=== PATIENT | male | born 1940 | race Caucasian/White ===

== ENCOUNTER 2018-07-26 05:32 | Day surgery (SDC) | payer OTHER, BC ==
[~2018-07-26] VITALS: Ht 175.3 cm; Wt 90.7 kg
--- NOTE | ~2018-07-26 | O ---
[facility] [place] [address] OPERATIVE REPORT Name: ANDRADE PETERS Madie Room #: 150-11 [facility]#: [id number] Admission: 07/26/18 ������������������ Attend Phys: Felipe Buckner MD Discharge: ������������������ Date of : 36 Report #: [id number] THIS REPORT FOR: //name// CC: Mi Buckner DATE OF SERVICE: 07/26/2018 [employer]ODU[employer] INSPECTOR: None. PREOPERATIVE DIAGNOSIS: Unilateral left lower lid entropion. POSTOPERATIVE DIAGNOSIS: Unilateral left lower lid entropion. OPERATION PERFORMED: Unilateral left lower lid entropion repair. ANESTHESIA: Local with IV sedation. COMPLICATIONS: None. INDICATIONS FOR PROCEDURE: This patient has unilateral lower lid entropion with chronic irritation and discharge. The current procedure is being undertaken in order to improve the patient's level of comfort and visual function. Informed consent was obtained to include but not limited to the loss of vision, bleeding, infection, scarring, failure to improve the problem and need for further surgery. DESCRIPTION OF OPERATION: The patient was taken to the operating room, where 2% Xylocaine with epinephrine mixed with equal parts of 0.75% Marcaine with Wydase was administered transcutaneously and transconjunctivally to the lower lid and lateral canthal area. The patient was then prepped and draped in the usual sterile fashion. A Marlen clamp was used to clamp the lateral canthus, following which a sharp canthotomy and cantholysis were performed. Hemostasis was achieved with a monopolar cautery, as it was throughout the case. A tarsal strip was prepared laterally, removing the lash-bearing portion of the redundant lid margin and the redundant tarsal plate. A transconjunctival dissection was then undertaken just inferior to the lower border of the tarsal plate. The lower lid retractors were disinserted from the inferior border of the tarsal plate. The lower lid retractors were then advanced and reattached to the anterior surface of the tarsal plate with mattress 5-0 chromic sutures passed transconjunctivally and secured in the infraciliary margin. The tarsal strip was then secured laterally with 2 interrupted 5-0 Prolene sutures. The subcutaneous structures and the skin were then closed with multiple interrupted [address] [address] OPERATIVE REPORT Name: ANDRADE PETERS Room #: 150-11 [facility]#: [id number] Admission: 07/26/18 ������������������ Attend Phys: Felipe Buckner MD Discharge: ������������������ Date of : 36 Report #: [id number] 6-0 plain gut sutures so the lateral canthal angle was sharply reformed. The wound was then cleaned and dressed with ophthalmic antibiotic ointment. The patient was then transported to the recovery area having tolerated the procedure well with no anesthetic or operative complications being noted. ��������������������������������������������� ���������������������������������������� By: ��������������������������������������������� [id number] Felipe Buckner MD /vidal
[~2018-07-26 05:32] MED LIST: ALBUTEROL2.5 MG/31 INH; ASPIRIN81 M2 PO; LANSOPRAZOLE30 MG PO; LASIX 20 MG TAB20 MG PO; LOSARTAN-HCTZ1 EAC3 PO; MULTIVITAMINS1 EAC7 PO; NITROGLYCERIN0.4 MG SUBLING; NORVASC10 MG PO; OMEGA 3 500 SO1 EACH PO; PRAVACHOL40 MG PO; PRILOSEC 20 MG20 MG PO; PROSCAR 5MG TABL5 MG PO; PROZAC20 MG PO; VENTOLIN HFA 1818 GM INH; VITAMIN D32000 UNI2 PO
[2018-07-26 07:46] VITALS: BP 111/93
== END 2018-07-26 09:52 | disposition home or self-care (01) ==
LOC: TBA 05:32 → OR 05:32
DX: H02.005 Unspecified entropion of left lower eyelid (principal); I10 Essential (primary) hypertension; E78.5 Hyperlipidemia, unspecified; J43.9 Emphysema, unspecified; N40.0 Benign prostatic hyperplasia without lower urinary tract symptoms; F17.220 Nicotine dependence, chewing tobacco, uncomplicated; F32.9 Major depressive disorder, single episode, unspecified; F41.9 Anxiety disorder, unspecified; K21.9 Gastro-esophageal reflux disease without esophagitis; Z98.41 Cataract extraction status, right eye; Z98.42 Cataract extraction status, left eye; Z98.890 Other specified postprocedural states; Z79.899 Other long term (current) drug therapy; Z88.0 Allergy status to penicillin; Z79.82 Long term (current) use of aspirin
CPT/HCPCS: 50010; 50101; 50386; 50398; 51636; 56527; 56531; 70005